=== PATIENT | female | born 1995 | race Two or more races ===

== ENCOUNTER 2025-03-21 13:16 | Emergency (ER) | payer OTHER ==
[~2025-03-21] VITALS: Ht 165.1 cm; Wt 59.0 kg
[2025-03-21 14:36] VITALS: BP 103/68; O2SAT 100
[2025-03-21] MEDS ORDERED: PRENATA CHEWAB1 EACH (14:36)
[2025-03-21] MEDS ORDERED: RINGERS SOLUTION,LACTATED 1,000 ML IV STA (17:24)
[2025-03-21 18:02] LABS: BASO % 0.3 % (0.1-1.2); EOS # 0.03 (0.04-0.54); EOS % 0.9 % (0.7-7.0); LYMPH # 0.92 (1.18-3.74); LYMPH % 26.4 % (19.3-53.1); MEAN PLATELET VOLUME 9.50 fl (9.4-12.4); MONO # 0.28 (0.24-0.82); MONO % 8.0 % (4.7-12.5); NEUT # 2.24 (1.56-6.13); NEUT % 64.4 % (34.0-71.1); RED CELL DISTRIBUTION WIDTH 13.2 % (11.6-14.4)
[2025-03-21 18:23] LABS: INR 1.04
[2025-03-21 18:57] LABS: BUN CREA RATIO 19.0 (7.0-25.0); CREATININE SERUM 0.59 mg/dL (0.55-1.02); GFR 122.27; GLUCOSE FASTING 107.0 mg/dL (65-100); HCG QUANTITATIVE 5.0 mUI/mL (1-3); OSMOLALITY SERUM 285.0 MOSM/KG (275-295)
== END 2025-03-21 19:36 | disposition home or self-care (01) ==
LOC: ER 13:16
DX: O20.8 Other hemorrhage in early pregnancy (principal); Z3A.01 Less than 8 weeks gestation of pregnancy; Z91.018 Allergy to other foods

== ENCOUNTER 2025-07-24 09:39 | Outpatient (CLI) | payer OTHER ==
[~2025-07-24 09:39] MED LIST: PRENATA CHEWAB1 EACH
== END 2025-07-24 09:41 | disposition home or self-care (01) ==
LOC: PRENATAL 09:39
PROVIDERS: ATTEND Obstetrics & Gynecology Maternal & Fetal Medicine
DX: O36.80X0 Pregnancy with inconclusive fetal viability, not applicable or unspecified (principal); Z36.82 Encounter for antenatal screening for nuchal translucency; Z3A.13 13 weeks gestation of pregnancy

== ENCOUNTER 2025-08-25 14:49 | Emergency (ER) | payer OTHER ==
[~2025-08-25] VITALS: Ht 160 cm; Wt 59.4 kg
[2025-08-25 15:32] VITALS: BP 102/65; O2SAT 99
[2025-08-25] MEDS ORDERED: 0.9 % SODIUM CHLORIDE 1,000 ML IV ONE (16:00)
[2025-08-25] MEDS ORDERED: ACETAMINOPHEN 500 MG GEL..CAP PO ONE ×2 (16:00→16:09)
[2025-08-25] MEDS ORDERED: FAMOTIDINE/PF 20 MG in 0.9 % SODIUM CHLORIDE 8 ML IV PUSH ONE (16:00)
[2025-08-25] MEDS ORDERED: FAMOTIDINE/PF 20 MG/2 ML VIAL ONE (16:09)
[2025-08-25 16:37] LABS: BASO % 0.1 % (0.1-1.2); EOS # 0.04 (0.04-0.54); EOS % 0.5 % (0.7-7.0); LYMPH # 0.96 (1.18-3.74); LYMPH % 11.4 % (19.3-53.1); MEAN PLATELET VOLUME 10.00 fl (9.4-12.4); MONO # 0.71 (0.24-0.82); MONO % 8.5 % (4.7-12.5); NEUT # 6.65 (1.56-6.13); NEUT % 79.1 % (34.0-71.1); RED CELL DISTRIBUTION WIDTH 14.3 % (11.6-14.4)
[2025-08-25 16:56] LABS: URINE APPEARANCE Clear; URINE BILIRRUBIN Negative (NEGATIVE); URINE BLOOD Small; URINE COLOR Yellow; URINE GLUCOSE Negative (NEGATIVE); URINE LEUKOCYTE Moderate; URINE NITRATE Negative; URINE PROTEIN Negative (NEGATIVE); URINE UROBILINOGEN 0.2 E.U./dl
[2025-08-25 16:58] LABS: INR < 0.93
[2025-08-25 17:00] LABS: URINE BACTERIA 808.6 uL (0.0-1933); URINE EPITHELIAL CELLS 24.6 uL (0.0-38.8); URINE RBC 45.6 uL (0.0-20.8); URINE WBC 108.6 uL (0.0-23.2)
[2025-08-25 17:07] LABS: URINE CAST 0.00 uL (0.0-1.40); URINE KETONE 40 (NEGATIVE)
[2025-08-25 17:27] LABS: ALT/SGPT 20.0 U/L (12-78); AST/SGOT 19.0 U/L (15-37); BILIRUBIN TOTAL 0.2 mg/dL (0.3-1.2); BUN CREA RATIO 21.0 (7.0-25.0); CREATININE SERUM 0.38 mg/dL (0.55-1.02); GFR 201.65; GLOBULINA 3.9 G/DL (2.4-3.5); GLUCOSE FASTING 83.0 mg/dL (65-100); OSMOLALITY SERUM 279.0 MOSM/KG (275-295)
[2025-08-25] MEDS ORDERED: CEFTRIAXONE SODIUM 1,000 MG in DEXTROSE 5 % IN WATER 100 ML IV ONE (21:00)
[2025-08-25] MEDS ORDERED: CEFTRIAXONE SODIUM 1,000 MG VIAL ONE (21:44)
[2025-08-25] MEDS ORDERED: CEPHALEXIN500 M1 PO (21:54)
[2025-08-25] MEDS ORDERED: PEPCID AC20 MG PO (21:54)
== END 2025-08-25 22:06 | disposition home or self-care (01) ==
LOC: ER 14:50
PROVIDERS: General Practice
DX: O20.8 Other hemorrhage in early pregnancy (principal); Z3A.18 18 weeks gestation of pregnancy; Z91.018 Allergy to other foods

== ENCOUNTER 2025-08-27 15:43 | Inpatient (IN) | payer OTHER ==
[~2025-08-27] VITALS: Ht 152.4 cm; Wt 60.8 kg
[~2025-08-27 15:43] MED LIST changes: +CEPHALEXIN500 M1 PO; +PEPCID AC20 MG PO
--- NOTE | 2025-08-27 15:53 | NUR ---
PTE ALERTA Y ORIENTADA X3 LLEGA EN AMBULANCIA DEBIDO A QUE LA MISMA TUVO SANGRADO PROFUSO JUAN LA TARDE DE HOY, Y ESTA MANCHANDO DESDE EL TANYA ACOMPANADO POR DOLOR PELVICO. SE MIDEN S/V Y SE UBICA EN BEKA.
[2025-08-27] MEDS ORDERED: FAMOTIDINE/PF 20 MG in 0.9 % SODIUM CHLORIDE 8 ML IV PUSH STA (16:26)
[2025-08-27] MEDS ORDERED: ACETAMINOPHEN 325 MG TABLET PO ONE (16:30)
[2025-08-27] MEDS ORDERED: 0.9 % SODIUM CHLORIDE 1,000 ML IV SCH (16:30)
[2025-08-27] MEDS ORDERED: ACETAMINOPHEN 500 MG GEL..CAP PO ONE (16:32)
[2025-08-27] MEDS ORDERED: FAMOTIDINE/PF 20 MG/2 ML VIAL ONE (16:32)
--- NOTE | 2025-08-27 17:03 | NUR ---
SE EDUCA ACERCA DE TX ORDENADO Y REFIERE ENTENDER. SE CANALIZA Y COLECTAN MUESTRAS DE LABORATORIO MEDIANTE MEDIDAS ASEPTICAS. SE JOSÉ LUIS ENVASE DE UA.
[2025-08-27 17:09] LABS: BASO % 0.1 % (0.1-1.2); EOS # 0.03 (0.04-0.54); EOS % 0.3 % (0.7-7.0); LYMPH # 0.68 (1.18-3.74); LYMPH % 7.2 % (19.3-53.1); MEAN PLATELET VOLUME 9.90 fl (9.4-12.4); MONO # 0.87 (0.24-0.82); MONO % 9.2 % (4.7-12.5); NEUT # 7.82 (1.56-6.13); NEUT % 83.0 % (34.0-71.1); RED CELL DISTRIBUTION WIDTH 14.4 % (11.6-14.4)
[2025-08-27 17:24] LABS: INR 0.95
[2025-08-27] MEDS ORDERED: RINGERS SOLUTION,LACTATED 1,000 ML IV SCH (18:00)
[2025-08-27] MEDS ORDERED: ACETAMINOPHEN 325 MG TABLET PO PRN (18:15)
[2025-08-27 18:27] LABS: URINE APPEARANCE Cloudy; URINE BILIRRUBIN Negative (NEGATIVE); URINE BLOOD Moderate; URINE COLOR Yellow; URINE GLUCOSE Negative (NEGATIVE); URINE KETONE Negative (NEGATIVE); URINE LEUKOCYTE Small; URINE NITRATE Negative; URINE PROTEIN Negative (NEGATIVE); URINE UROBILINOGEN 1.0 E.U./dl
[2025-08-27 18:28] LABS: URINE BACTERIA 10.2 uL (0.0-1933); URINE EPITHELIAL CELLS 15.0 uL (0.0-38.8); URINE RBC 42.4 uL (0.0-20.8); URINE WBC 8.2 uL (0.0-23.2)
[2025-08-27 18:35] VITALS: BP 114/71
[2025-08-27 18:45] LABS: URINE CAST 0.00 uL (0.0-1.40)
[2025-08-27 18:48] LABS: ALT/SGPT 31.0 U/L (12-78); AST/SGOT 26.0 U/L (15-37); BILIRUBIN TOTAL 0.26 mg/dL (0.3-1.2); BUN CREA RATIO 18.0 (7.0-25.0); CREATININE SERUM 0.39 mg/dL (0.55-1.02); GFR 195.69; GLOBULINA 4.2 G/DL (2.4-3.5); GLUCOSE FASTING 93.0 mg/dL (65-100); OSMOLALITY SERUM 279.0 MOSM/KG (275-295)
[2025-08-27] MEDS ORDERED: VITAMIN D310 MCG/1 M PO (19:23)
[2025-08-27 23:25] VITALS: BP 91/54
[2025-08-28] VITALS (11 sets, daily range): BP systolic 91–129; BP diastolic 54–96
[2025-08-28] MEDS ORDERED: MISOPROSTOL 100 MCG TABLET VAG STA ×2 (09:45→13:28)
[2025-08-28] MEDS ORDERED: MORPHINE SULFATE 4 MG/ML VIAL IV NR (16:00)
[2025-08-28] MEDS ORDERED: MISOPROSTOL 100 MCG TABLET PO STA (18:53)
[2025-08-28] MEDS ORDERED: CEFAZOLIN SODIUM 1,000 MG VIAL IV ONE (19:45)
[2025-08-28] MEDS ORDERED: MORPHINE SULFATE 4 MG/ML VIAL IV ONE (20:15)
[2025-08-28] MEDS ORDERED: OXYTOCIN 20 UNITS/1000ML RL PIGGYBAG IV ONE (20:37)
[2025-08-28] MEDS ORDERED: CHLORHEXIDINE GLUCONATE 120 ML BOTTLE TOP ONE (20:37)
[2025-08-28] MEDS ORDERED: ACETAMINOPHEN 500 MG GEL..CAP PO ONE (23:07)
[2025-08-29] MEDS ORDERED: CEFAZOLIN SODIUM 1,000 MG VIAL IV SCH (02:00)
[2025-08-29 02:03] LABS: BASO % 0.2 % (0.1-1.2); EOS # 0.02 (0.04-0.54); EOS % 0.2 % (0.7-7.0); LYMPH # 1.02 (1.18-3.74); LYMPH % 8.7 % (19.3-53.1); MEAN PLATELET VOLUME 10.10 fl (9.4-12.4); MONO # 0.76 (0.24-0.82); MONO % 6.5 % (4.7-12.5); NEUT # 9.80 (1.56-6.13); NEUT % 84.0 % (34.0-71.1); RED CELL DISTRIBUTION WIDTH 14.2 % (11.6-14.4)
[2025-08-29 04:00] VITALS: BP 100/55
[2025-08-29 07:40] VITALS: BP 117/57
[2025-08-29 11:20] VITALS: BP 100/60
[2025-08-29 15:40] VITALS: BP 101/62
== END 2025-08-29 16:22 | disposition home or self-care (01) | DRG 833 ==
LOC: ER → LDR 18:54
PROVIDERS: Student in an Organized Health Care Education/Training Program; ADMIT Obstetrics & Gynecology; ATTEND Obstetrics & Gynecology
PROC: 4A1HXCZ Monitoring of Products of Conception, Cardiac Rate, External Approach (ICD-10-PCS; principal; 2025-08-27)
DX: O42.012 Preterm premature rupture of membranes, onset of labor within 24 hours of rupture, second trimester (principal); Z3A.18 18 weeks gestation of pregnancy; Z37.0 Single live birth